=== PATIENT | male | born 1980 | race Caucasian/White ===

== ENCOUNTER 2017-04-17 09:52 | Day surgery (SDC) | payer OTHER ==
[2017-04-16 16:25] VITALS: Ht 182.9 cm; Wt 102.2 kg
[2017-04-17] VITALS (10 sets, daily range): BP systolic 114–120; BP diastolic 59–76; PULSE 48–62; RESP 16–21
[~2017-04-17] VITALS: Ht 182.9 cm; Wt 102.2 kg
[~2017-04-17 09:52] MED LIST: CEFAZOLIN 1 GM/50 ML (PMX) 50 ML IVPB ONE; SOD CHLORIDE 0.9% 1,000 ML IV SCH
[2017-04-17] MEDS ORDERED: BUPIVACAINE 0.25% (MPF) 30 ML INJ ONE (14:03)
[2017-04-17] MEDS ORDERED: LIDOCAINE 2% (SDV) 5 ML INJ ONE (14:11)
[2017-04-17] MEDS ORDERED: CEFAZOLIN 1 GM INJ ONE ×2 (14:11→14:31)
[2017-04-17] MEDS ORDERED: PROPOFOL 20 ML ONE (14:11)
[2017-04-17] MEDS ORDERED: BACITRACIN 0.9 GM OINT ONE (14:26)
[2017-04-17] MEDS ORDERED: OXYCODONE/ACETAMINOPHEN (5/325) TAB PO PRN ×2 (15:00)
[2017-04-17] MEDS ORDERED: LABETALOL HCL 20MG INJ IV PRN (15:00)
[2017-04-17] MEDS ORDERED: EPHEDrine SULFATE 50 MG/5 ML SYG IV PRN (15:00)
[2017-04-17] MEDS ORDERED: MEPERIDINE 25 MG INJ IV PRN (15:00)
[2017-04-17] MEDS ORDERED: METOCLOPRAMIDE 10 MG INJ IV PRN (15:00)
[2017-04-17] MEDS ORDERED: DIPHENHYDRAMINE 50 MG INJ IV PRN (15:00)
[2017-04-17] MEDS ORDERED: hydrALAzine 20 MG INJ IV PRN (15:00)
[2017-04-17] MEDS ORDERED: ONDANSETRON 4 MG INJ IV PRN (15:00)
[2017-04-17] MEDS ORDERED: HYDROCODONE/APAP (5/325) TAB PO ONE (15:00)
[2017-04-17] MEDS ORDERED: MIDAZOLAM 1 MG/ML 2 ML INJ IV PRN (15:00)
[2017-04-17] MEDS ORDERED: FENTAnyl 50 MCG/ML VIAL IV PRN ×3 (15:00)
[2017-04-17] MEDS ORDERED: HYDROmorphONE (0.2 MG/ML) 10ML SYG IV PRN ×3 (15:00)
--- NOTE | 2017-04-17 15:04 | OPR ---
Date/Time of Note Date/Time of Note DATE: 04/17/17 TIME: 14:55 Operative Report Procedure Date: Apr 17, 2017 Preoperative Diagnosis right scalp mass Postoperative Diagnosis same Operation Performed 1. excision of right scalp mass excision with 3 cm incision and 3 cm mass 2. localized adjacent tissue transfer with the use of skin flaps 6 sq cm defect 3. therapeutic injection of subcutaneous marcaine cpt code 20741 Surgeon: Uziel CARSON Anesthesia Type: general Estimated Blood Loss: 0 - 10 ml's Specimens right scalp mass Grafts/Implants: none Complications: no Indications This is a 36-year-old male with a right scalp mass. He requires surgical excision. Risks alternatives benefits and percent were discussed the patient. Patient expresses understanding consents to the operation. Procedure Description Patient is taken to the OR and prepped and draped in usual sterile fashion. Surgical time is performed. IV antibiotics are given. Transverse incision is made over the right scalp mass with a 15 blade. Dissection cauterie is carried down to the mass and the mass is circumferentially excised. Irrigation is used. The surgical site is hemostatic. Due to the tissue defect localized adjacent tissue transfer with the use of skin flaps is performed. Multilayer closure with 3-0 vicryl in an interrupted fashion and 4-0 monocryl in a running fashion. Therapeutic injection of subcutaneous marcaine performed. Dry dressings are applied. Uziel CARSON Apr 17, 2017 15:04
== END 2017-04-17 19:55 | disposition home or self-care (01) ==
LOC: SDS 09:52
PROVIDERS: ATTEND Surgery
DX: L72.11 Pilar cyst (principal)
CPT/HCPCS: 14020; 88307; J0690